=== PATIENT | female | born 1950 | race Caucasian/White ===

== ENCOUNTER → 2016-09-08 | Outpatient (CLI) | payer BC ==
[~2016-09-08] MED LIST: ATOR10TA65 PO; FERR324T11 PO; FOLI-49 PO; GLIM4TAB PO; METF-382 PO
[2016-09-08 16:13] LABS: ADD SCAN DIFF NO
[2016-09-08 16:27] LABS: ALBUMIN 4.3 g/dl (3.3-4.9)
[2016-09-08 16:28] LABS: POTASSIUM 5.1 mmol/L (3.5-5.1)
[2016-09-08 16:29] LABS: CREATININE 0.68 mg/dl (0.44-1.00)
[2016-09-08 16:30] LABS: ALBUMIN/GLOBULIN RATIO 1.26; BILIRUBIN,INDIRECT 0.1 mg/dl (0-1.1); BILIRUBIN,TOTAL 0.1 mg/dl (0.2-1.3); TOTAL PROTEIN 7.7 g/dl (6.1-8.1)
[2016-09-08 16:31] LABS: CALCIUM 10.1 mg/dl (8.4-10.2)
[2016-09-08 17:23] LABS: BASOPHILS % 0.4 % (0.0-2.0); EOSINOPHILS # 0.1 10^3/ul (0.0-0.5); EOSINOPHILS % 0.9 % (0.0-7.0); HEMATOCRIT 33.7 % (37.0-47.0); LYMPHOCYTES # 3.8 10^3/ul (0.8-2.9); LYMPHOCYTES % 49.3 % (15.0-51.0); MEAN CORPUSCULAR HGB CONC 32.6 g/dl (32.0-37.0); MEAN PLATELET VOLUME 10.3 fl (7.4-10.4); MONOCYTE # 0.4 10^3/ul (0.3-0.9); MONOCYTES % 5.2 % (0.0-11.0); NEUTROPHIL # 3.4 10^3/ul (1.6-7.5); NEUTROPHILS % 44.1 % (39.0-77.0); PLATELET COUNT 270 10^3/UL (140-415); RED BLOOD COUNT 3.24 10^6/ul (4.20-5.40); RED CELL DISTRIBUTION WIDTH 13.2 % (11.5-14.5); WHITE BLOOD COUNT 7.7 10^3/ul (4.8-10.8)
== END | disposition home or self-care (01) ==
LOC: LAB 15:56
PROVIDERS: ATTEND Internal Medicine
DX: E11.65 Type 2 diabetes mellitus with hyperglycemia (principal); I10 Essential (primary) hypertension
CPT/HCPCS: 80053; 83036; 85025

== ENCOUNTER → 2016-11-19 | Outpatient (CLI) | payer BC ==
[~2016-11-19] MED LIST changes: -METF-382 PO; +METF500T4 PO
[2016-11-19 16:20] LABS: ADD SCAN DIFF NO
[2016-11-19 16:21] LABS: BASOPHILS % 0.4 % (0.0-2.0); EOSINOPHILS % 0.6 % (0.0-7.0); HEMATOCRIT 34.5 % (37.0-47.0); LYMPHOCYTES # 3.3 10^3/ul (0.8-2.9); LYMPHOCYTES % 45.6 % (15.0-51.0); MEAN CORPUSCULAR HEMOGLOBIN 32.7 pg (29.0-33.0); MEAN CORPUSCULAR HGB CONC 31.9 g/dl (32.0-37.0); MEAN CORPUSCULAR VOLUME 102.7 fl (82.0-101.0); MEAN PLATELET VOLUME 9.8 fl (7.4-10.4); MONOCYTE # 0.3 10^3/ul (0.3-0.9); MONOCYTES % 4.1 % (0.0-11.0); NEUTROPHIL # 3.6 10^3/ul (1.6-7.5); NEUTROPHILS % 49.2 % (39.0-77.0); PLATELET COUNT 267 10^3/UL (140-415); RED BLOOD COUNT 3.36 10^6/ul (4.20-5.40); RED CELL DISTRIBUTION WIDTH 12.8 % (11.5-14.5); WHITE BLOOD COUNT 7.2 10^3/ul (4.8-10.8)
[2016-11-19 16:35] LABS: ALBUMIN 4.3 g/dl (3.3-4.9)
[2016-11-19 16:36] LABS: POTASSIUM 4.6 mmol/L (3.5-5.1)
[2016-11-19 16:38] LABS: ALBUMIN/GLOBULIN RATIO 1.13; CREATININE 1.23 mg/dl (0.44-1.00); TOTAL PROTEIN 8.1 g/dl (6.1-8.1)
[2016-11-19 16:39] LABS: CALCIUM 9.3 mg/dl (8.4-10.2)
[2016-11-19 16:41] LABS: C-REACTIVE PROTEIN 0.8 mg/dl (0.0-0.9)
== END | disposition home or self-care (01) ==
LOC: LAB 15:43
PROVIDERS: ATTEND Nurse Practitioner Family
DX: M06.9 Rheumatoid arthritis, unspecified (principal)
CPT/HCPCS: 80053; 85025; 85651; 86140

== ENCOUNTER → 2017-03-06 | Outpatient (CLI) | payer BC ==
[2017-03-06 16:12] LABS: BASOPHILS % 0.6 % (0.0-2.0); EOSINOPHILS # 0.1 10^3/ul (0.0-0.5); EOSINOPHILS % 0.9 % (0.0-7.0); HEMATOCRIT 35.3 % (37.0-47.0); HEMOGLOBIN 11.3 g/dl (12.0-16.0); LYMPHOCYTES % 43.7 % (15.0-51.0); MEAN CORPUSCULAR HEMOGLOBIN 33.1 pg (29.0-33.0); MEAN CORPUSCULAR VOLUME 103.5 fl (82.0-101.0); MONOCYTE # 0.7 10^3/ul (0.3-0.9); MONOCYTES % 10.6 % (0.0-11.0); NEUTROPHILS % 43.9 % (39.0-77.0); PLATELET COUNT 206 10^3/UL (140-415); RED BLOOD COUNT 3.41 10^6/ul (4.20-5.40); RED CELL DISTRIBUTION WIDTH 14.1 % (11.5-14.5); WHITE BLOOD COUNT 6.8 10^3/ul (4.8-10.8)
[2017-03-06 16:33] LABS: ALBUMIN 4.8 g/dl (3.3-4.9); ALBUMIN/GLOBULIN RATIO 1.17; BILIRUBIN,INDIRECT 0.1 mg/dl (0-1.1); BILIRUBIN,TOTAL 0.1 mg/dl (0.2-1.3); C-REACTIVE PROTEIN 0.6 mg/dl (0.0-0.9); CALCIUM 9.8 mg/dl (8.4-10.2); CREATININE 0.86 mg/dl (0.44-1.00); POTASSIUM 4.6 mmol/L (3.5-5.1); TOTAL PROTEIN 8.9 g/dl (6.1-8.1)
== END | disposition home or self-care (01) ==
LOC: LAB 15:37
PROVIDERS: ATTEND Specialist
DX: N18.6 End stage renal disease (principal)
CPT/HCPCS: 80053; 85025; 85651; 86140; 86480

== ENCOUNTER → 2017-10-21 | Outpatient (CLI) | END | disposition home or self-care (01) ==

== ENCOUNTER → 2018-04-15 | Outpatient (CLI) | END | disposition home or self-care (01) ==

== ENCOUNTER → 2018-07-16 | Outpatient (CLI) | payer BC ==
[~2018-07-16] MED LIST changes: +AMLO5TAB4 PO; +CYAN100T PO; +DULA0.75 SQ; +INSU200I4 SQ; +METF500T24 PO; -METF500T4 PO
== END | disposition home or self-care (01) ==
LOC: LAB 11:47
PROVIDERS: ATTEND Internal Medicine
DX: E11.9 Type 2 diabetes mellitus without complications (principal); I10 Essential (primary) hypertension; E78.5 Hyperlipidemia, unspecified
CPT/HCPCS: 80053; 80061; 83036; 84443; 85025

== ENCOUNTER 2018-08-19 07:35 | Inpatient (IN) | payer BC ==
[2018-08-13 18:16] VITALS: Ht 154.9 cm; Wt 52.7 kg
--- NOTE | 2018-08-18 12:04 | PREOPHP ---
DATE OF ADMISSION: 07/30/2018 CHIEF COMPLAINT: Patient in for preop right shoulder replacement. HISTORY OF PRESENT ILLNESS: The patient is a 68-year-old female with a history of arthritis and bila teral shoulder pain for years, had left shoulder replacement approximately 2 years ago with good resu lts. She has had increasing pain in the right shoulder over the last year. The pain is worse with a ctivities, with diminished range of motion. Strength has been okay, the patient has seen Dr. Dahl , who scheduled her for right shoulder replacement on 08/19/2018. The patient denies any recent illn esses. No chest pain, shortness of breath, cough, abdominal pain, urinary symptoms, fever, chills, o r night sweats. Diabetic control is improving. She says her home sugars are in the 140s. The patie nt did recently see Dr. Huston, who felt her sensory control is improving that she would be stable f or her procedure. The patient also had cardiology clearance with Dr. Haddad. PAST MEDICAL HISTORY: Diabetes, hypertension, hyperlipidemia, arthritis surgeries, left shoulder rep lacement. OPERATIONS: Bilateral knee replacements, hysterectomy, bunionectomy. MEDICATIONS: 1. Tresiba 14 units subq daily. 2. Trulicity weekly. 3. Atorvastatin 20 mg daily. 4. Methotrexate weekly. 5. Folic acid 1 mg daily. 6. Amlodipine 5 mg daily. 7. Metformin 500 mg b.i.d. ALLERGIES: 1. INTOLERANCE TO ACARBOSE. 2. INTOLERANCE TO AVANDIA. 3. INTOLERANCE TO FARXIGA. 4. INTOLERANCE TO JANUVIA. 5. INTOLERANCE TO TRADJENTA. SOCIAL HISTORY: Patient denies any tobacco or alcohol use. She is , works at [employer] in housekeeping. FAMILY HISTORY: The patient's father at 89. Mother with history of arthritis. She had 7 b rothers, 4 are , 4 sisters who are alive, son and daughter who are alive and well. REVIEW OF SYSTEMS: GENERAL: The patient denies any fever, chills, night sweats, other general complaints. HEENT: Patient denies any headaches, dizziness, any vision change, congestion, rhinorrhea, sore thro at, or other HEENT complaints. RESPIRATORY: The patient denies any cough, wheeze, shortness of breath, or other respiratory complai nts. CARDIOVASCULAR: The patient denies any chest pains, palpitations, dizziness, or other cardiovascular complaints. GASTROINTESTINAL: The patient denies abdominal pain, nausea, vomiting, bright red blood per rectum, melena, or other GI complaints. GENITOURINARY: The patient denies any dysuria, frequency, or other urinary symptoms. NEUROLOGIC: The patient denies any numbness, tingling, weakness, or other focal neurologic symptoms. PHYSICAL EXAMINATION: VITAL SIGNS: Pulse 84, blood pressure 140/80. GENERAL APPEARANCE: The patient is well-developed, well-nourished female in no acute distress. She appears nontoxic. HEENT: Normocephalic, atraumatic. Sclerae anicteric. TMs are clear. Oropharynx is clear. NECK: Supple, no adenopathy, no bruits. LUNGS: Clear to auscultation. CARDIAC: Regular rate and rhythm. ABDOMEN: Bowel sounds are present. Abdomen is soft, nontender, nondistended. EXTREMITIES: Without cyanosis, clubbing, or edema. There is pain to palpation in the right shoulder with decreased range of motion. Distal neurovascular intact. NEUROLOGIC: The patient is alert and oriented x3 with no focal neurologic findings. IMPRESSION: 1. Severe arthritis, right shoulder. 2. Diabetes with hyperglycemia. 3. Hypertension. 4. Hyperlipidemia. PLAN: Preop labs, CBC, CMP, PT, PTT, UA culture if indicated. Chest x-ray, if above okay, okay for surgery. The patient had recent EKG in cardiology clearance with Dr. Haddad, increase Lipitor 20 mg daily. Continue other treatments, avoid aspirin, nonsteroidals and blood thinners prior to surgery. Followup to be arranged. ADDENDUM: Data reviewed. Labs notable for hemoglobin of 11.7, glucose of 332. Discussed with Dr. Raquel carney insulin operatively as needed to control blood sugars. Otherwise, patient is medically stable to proceed with proposed procedure. Dictated By: SHILO FELDER/TUAN Conf#: [id number] DID#: [id number]
[2018-08-19] VITALS (29 sets, daily range): BP systolic 128–145; BP diastolic 56–72; PULSE 66–76; RESP 11–20
[~2018-08-19] VITALS: Ht 154.9 cm; Wt 52.7 kg
--- NOTE | 2018-08-19 05:51 | HPN ---
Date/Time of Note Date/Time of Note DATE: 08/19/18 TIME: 05:51 Interval H&P Admission Note Pt. seen H&P reviewed: No system changes TOO SOTELO MD Aug 19, 2018 05:51
--- NOTE | 2018-08-19 05:54 | OPR ---
Date/Time of Note Date/Time of Note DATE: 08/19/18 TIME: 05:51 Operative Report Procedure Date: Aug 19, 2018 Preoperative Diagnosis Right shoulder rotator cuff tear arthropathy Postoperative Diagnosis 1. Right shoulder arthritis, secondary 2. Massive, unrepairable rotator cuff tear Operation/Procedure Performed 1. Right reverse total shoulder replacement 2. Right shoulder injection of PRP Surgeon see signature line Crown Ironer Operator Noe Rosas PA-C Second Crown Ironer Operator: NILESH JIMENEZ Anesthesia Type: general Estimated Blood Loss: 100 - 150 ml's Transfusion none Specimen See op note Grafts/Implants See op note Complications none Pt Condition Post Procedure: stable Disposition: PACU Procedure Description KITCHEN CHEF SURGEON: Noe Rosas PA-C was asked to be present for this case at my request. Assistance was necessary as a result of the highly technical nature of this operation. When performing an open total shoulder replacement, it is critical to have a trained refinery operator assistant who is an expert in handling the extremity and assisting the surgeon in tasks such as manipulation of the arm, protection of the neurovascular structures and positioning the implants. This assistance cannot be performed by a semiconductor lab technician, as it is considered an integral part of the procedure and the refinery operator assistant should be compensated for their time. PROCEDURE IN DETAIL: Following the administration of general anesthesia supplemented with a peripheral nerve block for postoperative pain control, the patient was examined under anesthesia. Examination of the right shoulder revealed very significant stiffness including a forward flexion of about 80 degrees and abduction of 35 degrees maximal external rotation of 30 degrees with severe crepitus. There was anteroposterior escape of the humeral head, also. The right forearm was then prepped and 60 cc of blood were aspirated from the forearm. The blood was then passed to the solar sales representative from the company who prepared the PRP solution. The patient was then placed in the beach chair position. Sterile prep and drape was then undertaken. An extended deltopectoral incision was then carried through the interval exposing the conjoined tendon and retracting it medially. The subscapularis was noted to be partially disrupted superiorly. Severe arthritic changes were noted with very large peripheral osteophytes. The superior rotator cuff was torn and retracted. The biceps tendon was also chronically torn and retracted. The intra-articular portion was resected. A humeral head osteotomy was then created in the appropriate degree of version and inclination. The humerus was retracted and the glenoid was exposed. Peripheral osteophytes were removed and a complete capsulectomy performed. The central canal of the glenoid was then entered and prepared for a standard Depuy baseplate. The glenoid canal was irrigated and 2 cc of PRP solution were i nstilled into the previously prepared site. A standard Depuy baseplate was then applied with four peripheral screws and solid fixation. A 38 mm glenosphere was then applied, with solid fixation. The humerus was then reamed and prepared for a 10 mm humeral component with a standard metaphyseal component and 3 mm liner. The humeral canal was then irrigated and the remaining PRP solution instilled into the humeral canal. The actual components were implanted with solid fixation. The arm was taken through full range of motion with no evident instability. The joint was then thoroughly irrigated, the deep tissues were approximated using #1 suture followed by closure of the deep layer using 2-0 Monocryl. The skin was closed using 4-0 Monocryl suture, and a Prenio dressing. An Ultrasling was then applied. The patient was awakened and transported to the recovery room in stable [facility]. Estimated blood loss for this procedure was 150 cc. Radiographs will be obtained in the recovery room. TOO SOTELO MD Aug 19, 2018 05:54
[~2018-08-19 07:35] MED LIST changes: -AMLO5TAB4 PO; -CYAN100T PO; -DULA0.75 SQ; -INSU200I4 SQ; +LACTATED RINGER'S 1,000 ML IV* SCH; +SEVOFLURANE 15 MIN ONE
[2018-08-19] MEDS ORDERED: GABAPENTIN 300 MG CAP PO ONE (08:30)
[2018-08-19] MEDS ORDERED: CEFAZOLIN 2 GM/50 ML (PMX) 50 ML IVPB ONE (08:30)
[2018-08-19] MEDS ORDERED: TRANEXAMIC ACID 1,000 MG in DEXTROSE 5% 100 ML IVPB ONE (08:30)
[2018-08-19] MEDS ORDERED: DEXAMETHASONE 1 MG TAB PO ONE (08:30)
[2018-08-19] MEDS ORDERED: AMLO5TAB4 PO (09:05)
[2018-08-19] MEDS ORDERED: METF500T24 PO (09:05)
[2018-08-19] MEDS ORDERED: FOLI-49 PO (09:06)
[2018-08-19] MEDS ORDERED: CYAN100T PO (09:06)
[2018-08-19] MEDS ORDERED: DULA0.75 SQ (09:07)
[2018-08-19] MEDS ORDERED: INSU200I4 SQ (09:08)
[2018-08-19] MEDS ORDERED: BUPIVACAINE 0.5% (SDV) 30 ML, morphine SULFATE (PF) 8 MG, EPINEPHrine 0.3 MG, KETOROLAC... IRR SCH ×7 (10:00)
[2018-08-19] MEDS ORDERED: MIDAZOLAM 1 MG/ML 2 ML INJ ONE (10:40)
[2018-08-19] MEDS ORDERED: FENTAnyl 50 MCG/ML VIAL ONE (10:41)
[2018-08-19] MEDS ORDERED: ROPIVACAINE 0.5 % 30 ML VIAL ONE (10:48)
[2018-08-19] MEDS ORDERED: hydrALAzine 20 MG INJ ONE (10:51)
--- NOTE | 2018-08-19 11:57 | PREAC ---
Date/Time of Note Date/Time of Note DATE: 08/19/18 TIME: 11:55 Anesthesia Eval and Record Evaluation Time Pre-Procedure Interview DATE: 08/19/18 TIME: 11:55 Age 68 Sex female NPO: 8 hrs Preoperative diagnosis Rt shoulder arthritis Planned procedure Rt shoulder replacement Past Medical History Past Medical History: Includes Cardio: HTN, Dyslipidemia Endo: Diabetes Surgery & Anesthesia Issues Hx of PONV, No known issue Meds Anticoagulation: No Beta Collette within 24 hr: No Reason Beta Collette not given: Pt. not on B-Collette Reported Medications Insulin Degludec (Tresiba Flextouch U-200) 200 Unit/1 Ml Insuln.pen, 14 UNIT SQ QAM 08/19/18 Dulaglutide (Trulicity) 0.75 Mg/0.5 Ml Pen.injctr, 0.75 MG SQ EVERY Thursday08/19/18 Cyanocobalamin* (Vitamin B12*) 100 Mcg Tab, 100 MCG PO DAILY, TAB 08/19/18 Folic Acid* (Folic Acid*) 1 Mg Tablet, 1 MG PO DAILY, TAB 08/19/18 Amlodipine Besylate* (Norvasc*) 5 Mg Tablet, 5 MG PO DAILY, TAB 08/19/18 Metformin Hcl* (Metformin Hcl*) 500 Mg Tablet, 500 MG PO WITH BREAKFAST DINNE, #60 TAB 08/19/18 Discontinued Reported Medications Metformin Hcl* (Metformin Hcl*) 500 Mg Tablet, 500 MG PO WITH BREAKFAST DINNE, # 30 TAB 07/03/16 Folic Acid* (Folic Acid*) 1 Mg Tablet, 1 MG PO DAILY, TAB 07/03/16 Glimepiride* (Glimepiride*) 4 Mg Tablet, 4 MG PO DAILY, TAB 01/13/14 Atorvastatin Calcium (Atorvastatin Calcium) 10 Mg Tab, 10 MG PO DAILY, TAB 01/13/14 Ferrous Fumarate (Ferrous Fumarate) 324 Mg Tablet, 324 MG PO DAILY 10/29/12 Current Medications Bupivacaine HCl/ Morphine Sulfate/ Epinephrine/ Ketorolac Tromethamine/ Clonidine/Sodium Chloride/ Vancomycin HCl INTRA-OP IRR ; Start 08/19/18 at 10:00; Stop 08/19/18 at 12:30 Lactated Ringer's 1,000 ml @ 0 mls/hr Q0M IV* Last administered on 08/19/18at 09:20; Admin Dose 30 MLS/HR; Start 08/19/18 at 06:30; Stop 08/19/18 at 20:00 Meds reviewed: Yes Allergies Coded Allergies: No Known Drug Allergy (Verified Allergy, Unknown, 08/19/18) Allergies Reviewed: Yes Labs/Studies Labs Reviewed: Reviewed by anesthesiologist test: N/A Studies: ECG Pre-procedure Exam Last vitals Vital Signs Date Temp Pulse Resp B/P (MAP) Pulse Ox O2 O2 Flow FiO2 Time Delivery Rate 08/19/18 97.4 66 16 138/66 100 Room Air 09:29 (90) Airway: Adequate mouth opening, Adequate thyromental dist Mallampati: Mallampati II Teeth: Normal Lung: Normal Heart: Normal ASA Physical Status ASA physical status: 3 Emergency: None Planned Anesthetic General/MAC: LMA Planned Pain Management Single shot nerve block, Parenteral pain med Pre-operative Attestations Prior to commencing anesthesia and surgery, the patient was re-evaluated, there was verification of: *The patient's identity *The results of appropriate recent lab work and preoperative vital signs *The above evaluation not changing prior to induction *Anesthetic plan, risk benefits, alternative and complications discussed with patient/family; questions answered; patient/family understands, accepts and wishes to proceed. REDD STAUFFER MD Aug 19, 2018 11:57
[2018-08-19] MEDS ORDERED: CA CHLORIDE (GM) 10% 10 ML INJ ONE (12:22)
[2018-08-19] MEDS ORDERED: POLYMYXIN/BACITRACIN 1L IRRIG ONE (12:22)
[2018-08-19] MEDS ORDERED: THROMBIN (BOVINE) 5,000 UNIT VIAL TP ONE (12:22)
[2018-08-19] MEDS ORDERED: CEFAZOLIN 1 GM INJ ONE (12:54)
[2018-08-19] MEDS ORDERED: LIDOCAINE 2% (SDV) 5 ML INJ ONE (12:55)
[2018-08-19] MEDS ORDERED: METOCLOPRAMIDE 10 MG INJ ONE (12:55)
[2018-08-19] MEDS ORDERED: ETOMIDATE 20 MG INJ ONE (12:55)
[2018-08-19] MEDS ORDERED: ONDANSETRON 4 MG INJ ONE (12:55)
--- NOTE | 2018-08-19 13:08 | PDOCDIS ---
Discharge Instructions DIAGNOSIS Discharge Diagnosis shoulder arthritis CONDITION [id number] Patient Condition: [id number] Good HOME CARE INSTRUCTIONS: [id number] Diet Instructions: [id number] Regular ACTIVITY: [id number] Activity Restrictions: [id number] Rest between Activity Avoid heavy lifting Keep Limb Elevated Focia7Ch Bathing Restrictions: [id number] Shower FOLLOW UP/APPOINTMENTS Follow-up Plan 2 wseks SCHOOL/WORK RELEASE May return to School/Work with: With Restrictions School/Work Release Comment: 5 pound tabletop usage for 6 weeks TOO SOTELO MD Aug 19, 2018 13:08
--- NOTE | 2018-08-19 13:26 | PAC ---
Date/Time of Note Date/Time of Note DATE: 08/19/18 TIME: 13:26 Post-Anesthesia Notes Post-Anesthesia Note Last documented vital signs Vital Signs Date Temp Pulse Resp B/P (MAP) Pulse Ox O2 O2 Flow FiO2 Time Delivery Rate 08/19/18 98.8 13:23 08/19/18 66 16 138/66 100 Room Air 09:29 (90) Activity: WNL Respiratory function: WNL Cardiovascular function: WNL Mental status: Baseline Pain reasonably controlled: Yes Hydration appropriate: Yes Nausea/Vomiting absent: Yes Comments 120/56, P:65, Spo2:100%, T:98,7 REDD STAUFFER MD Aug 19, 2018 13:26
[2018-08-19] MEDS ORDERED: LOPERAMIDE 2 MG CAP PO PRN (13:30)
[2018-08-19] MEDS ORDERED: LABETALOL HCL 20MG INJ IV PRN (13:30)
[2018-08-19] MEDS ORDERED: METOCLOPRAMIDE 10 MG INJ IV PRN (13:30)
[2018-08-19] MEDS ORDERED: HYDROmorphONE 1 MG/5 ML IV SYRINGE IV PRN (13:30)
[2018-08-19] MEDS ORDERED: hydrALAzine 20 MG INJ IV PRN (13:30)
[2018-08-19] MEDS ORDERED: MEPERIDINE 25 MG INJ IV PRN (13:30)
[2018-08-19] MEDS ORDERED: TRANEXAMIC ACID 1,000 MG in SOD CHLORIDE 0.9% 100 ML IVPB SCH (13:30)
[2018-08-19] MEDS ORDERED: ONDANSETRON 4 MG INJ IV PRN ×2 (13:30)
[2018-08-19] MEDS ORDERED: NACL 0.9% 3 ML SYG IV SCH (13:30)
[2018-08-19] MEDS ORDERED: NALOXONE (0.4 MG/ML) INJ IV PRN (13:30)
[2018-08-19] MEDS ORDERED: ZOLPIDEM 5 MG TAB PO PRN (13:30)
[2018-08-19] MEDS ORDERED: HYDROmorphONE 1 MG/ML SYG IV PRN (13:30)
[2018-08-19] MEDS ORDERED: DULAGLUTIDE 0.75 MG SQ SCH (13:30)
[2018-08-19] MEDS ORDERED: DIPHENHYDRAMINE 50 MG INJ IV PRN ×2 (13:30)
[2018-08-19] MEDS ORDERED: oxyCODONE 5 MG TAB PO PRN ×3 (13:30)
[2018-08-19] MEDS ORDERED: MAGNESIUM HYDROXIDE 30ML CUP PO PRN (13:30)
[2018-08-19] MEDS ORDERED: FENTAnyl 50 MCG/ML VIAL IV PRN (13:30)
[2018-08-19] MEDS ORDERED: HYDROmorphONE 1 MG/5 ML IV SYRINGE IV ONE (13:51)
[2018-08-19] MEDS: HYDROmorphONE 1 MG/5 ML IV SYRINGE IV PRN ×2 (14:08→14:15)
[2018-08-19] MEDS: KETOROLAC 15 MG INJ IV PRN (14:42)
[2018-08-19] MEDS: CEFAZOLIN 1 GM/50 ML (PMX) 50 ML IVPB SCH ×2 (16:04→22:05)
[2018-08-19] MEDS: ONDANSETRON 4 MG INJ IV PRN ×2 (16:04→23:53)
--- NOTE | 2018-08-19 17:30 | PN ---
Date/Time of Note Date/Time of Note DATE: 08/19/18 TIME: 17:24 Assessment/Plan VTE Prophylaxis Risk score (from Nsg)>0 risk: 2 SCD applied (from Nsg): Yes Pharmacological prophylaxis: NA/contraindicated Pharm contraindication: surgical contra Lines/Catheters IV Catheter Type (from Nrsg): Peripheral IV Urinary Cath still in place: No Assessment/Plan Assessment/Plan A: OA rt shoulder - s/p replacement DM HTN P: pain control mild ss insulin until taking increased po monitor labs Results 24hrs Laboratory Tests Test 08/19/18 09:02 Bedside Glucose 191 Subjective 24 Hr Interval Summary Free Text/Dictation See H&P for full details. Pt with OA rt shoulder s/p replacement this am. Feel ing pretty well. Pain controlled. Tolerating jello. No cp, sob. Exam/Review of Systems Exam Vitals Vital Signs Date Temp Pulse Resp B/P (MAP) Pulse Ox O2 O2 Flow FiO2 Time Delivery Rate 08/19/18 Nasal 2.0 15:45 Cannula 08/19/18 74 13 145/66 96 14:51 (92) 08/19/18 98.8 13:23 Exam gen- nad, nontoxic lungs- CTA heart- RRR abd- +BS, soft, nontender ext- no edema, rt shoulder incision clean and dry. Distal neurovascular intact. Results Results 24hrs Laboratory Tests Test 08/19/18 09:02 Bedside Glucose 191 Medications Medication Current Medications Lactated Ringer's 1,000 ml @ 0 mls/hr Q0M IV* Last administered on 08/19/18at 09:20; Admin Dose 30 MLS/HR; Start 08/19/18 at 06:30; Stop 08/19/18 at 20:00 Amlodipine Besylate (Norvasc) 5 mg DAILY PO ; Start 08/20/18 at 09:00 Folic Acid (Folic Acid) 1 mg DAILY PO ; Start 08/20/18 at 09:00 Metformin HCl (Glucophage) 500 mg WITH BREAKFAST DINNE PO ; Start 08/19/18 at 17:55 Miscellaneous Information 0.75 mg EVERY THURSDAY SQ ; Start 08/19/18 at 13:30; Status UNV Miscellaneous Information 14 unit QAM SQ ; Start 08/20/18 at 09:00; Status UNV Cefazolin Sodium 50 ml @ 100 mls/hr Q8H IVPB Last administered on 08/19/18at 16:04; Admin Dose 100 MLS/HR; Start 08/19/18 at 13:30; Stop 08/20/18 at 05:59 Senna/Docusate Sodium (Senokot-S) 1 tab BID PO ; Start 08/19/18 at 21:00 Simethicone (Mylicon) 80 mg TID PRN PO .GAS; Start 08/19/18 at 13:30 Magnesium Hydroxide (Milk Of Mag) 30 ml BID PRN PO .CONSTIPATION; Start 08/19/18 at 13:30 Loperamide HCl (Imodium Cap) 2 mg Q6H PRN PO .DIARRHEA; Start 08/19/18 at 13:30 Dexamethasone (Decadron) 2 mg Q6 PO ; Start 08/19/18 at 18:00; Stop 08/20/18 at 12:01 Gabapentin (Neurontin) 300 mg HS PO ; Start 08/19/18 at 21:00 Acetaminophen (Tylenol Tab) 500 mg Q6 PO ; Start 08/19/18 at 18:00 Oxycodone HCl (Roxicodone) 15 mg Q4H PRN PO .PAIN; Start 08/19/18 at 13:30 Oxycodone HCl (Roxicodone) 10 mg Q4H PRN PO .PAIN; Start 08/19/18 at 13:30 Oxycodone HCl (Roxicodone) 5 mg Q4H PRN PO .PAIN; Start 08/19/18 at 13:30 Hydromorphone HCl (Dilaudid) 1 mg Q4H PRN IV .BREAKTHROUGH PAIN; Start 08/19/18 at 13:30 Ketorolac Tromethamine (Toradol) 15 mg Q6H PRN IV .PAIN Last administered on 08/19/18at 14:42; Admin Dose 15 MG; Start 08/19/18 at 13:30 Diphenhydramine HCl (Benadryl) 25 mg Q6H PRN IV .PRURITUS; Start 08/19/18 at 13:30 Zolpidem Tartrate (Ambien) 10 mg HS PRN PO .INSOMNIA; Start 08/19/18 at 13:30 IV Flush (NS 3 ml) 3 ml per protocol IV ; Start 08/19/18 at 13:30 Hydromorphone HCl (Dilaudid) 0.2 mg PACU PRN IV MILD PAIN 1-3 Last administered on 08/19/18at 14:21; Admin Dose 0.2 MG; Start 08/19/18 at 13:30; Stop 08/19/18 at 18:00 Hydromorphone HCl (Dilaudid) 0.4 mg PACU PRN IV MOD PAIN 4-6 Last administered on 08/19/18at 14:15; Admin Dose 0.4 MG; Start 08/19/18 at 13:30; Stop 08/19/18 at 18:00 Fentanyl (Sublimaze) 25 mcg PACU ORDER PRN IV MILD PAIN 1-3; Start 08/19/18 at 13:30; Stop 08/19/18 at 18:00 Ondansetron HCl (Zofran Inj) 4 mg PACU ORDER PRN IV NAUSEA/VOMITING; Start 08/19/18 at 13:30; Stop 08/19/18 at 18:00 Metoclopramide HCl (Reglan) 10 mg PACU ORDER PRN IV NAUSEA/VOMITING; Start 08/19/18 at 13:30; Stop 08/19/18 at 18:00 Labetalol HCl (Labetalol) 5 mg PACU ORDER PRN IV HIGH BLOOD PRESSURE; Start at 13:30; Stop 08/19/18 at 18:00 Hydralazine HCl (Apresoline) 5 mg PACU ORDER PRN IV HIGH BLOOD PRESSURE; Start 08/19/18 at 13:30; Stop 08/19/18 at 18:00 Meperidine HCl (Demerol) 25 mg PACU ORDER PRN IV .RIGORS; Start 08/19/18 at 13:30; Stop 08/19/18 at 18:00 Diphenhydramine HCl (Benadryl) 25 mg PACU ORDER PRN IV .PRURITUS; Start 08/19/18 at 13:30; Stop 08/19/18 at 18:00 Ondansetron HCl (Zofran Inj) 4 mg Q6H PRN IV .NAUSEA/VOMITING Last administered on 08/19/18at 16:04; Admin Dose 4 MG; Start 08/19/18 at 13:30 Naloxone HCl (Narcan) 0.2 mg Q2M PRN IV .RESP RATE; Start 08/19/18 at 13:30 SHILO ROMERO MD Aug 19, 2018 17:30
[2018-08-19] MEDS: ACETAMINOPHEN 500 MG TAB PO SCH ×2 (18:00→23:54)
[2018-08-19] MEDS: metFORMIN 500 MG TAB PO SCH (18:09)
[2018-08-19] MEDS: DEXAMETHASONE 2 MG TAB PO SCH ×2 (18:09→23:54)
[2018-08-19] MEDS ORDERED: DEXTROSE 50% 50 ML SYRINGE IV PRN ×2 (19:00)
[2018-08-19] MEDS ORDERED: GLUCAGON 1 MG INJ IM PRN (19:00)
[2018-08-19] MEDS ORDERED: GLUCOSE GEL 15 GRAM TUBE BUCCAL PRN (19:00)
[2018-08-19] MEDS ORDERED: GLUCOSE GEL 15 GRAM TUBE PO PRN ×2 (19:00)
[2018-08-19] MEDS: SENNA/DOCUSATE NA (8.6MG/50MG) TAB PO SCH (20:33)
[2018-08-19] MEDS ORDERED: GABAPENTIN 300 MG CAP PO SCH (21:00)
[2018-08-19] MEDS: INSULIN ASPART [NOVOLOG] 3 ML PEN SC SCH (21:34)
[2018-08-20] MEDS ORDERED: ACCU-CHEK XX SCH (02:00)
[2018-08-20] MEDS: KETOROLAC 15 MG INJ IV PRN (03:40)
[2018-08-20] MEDS: CEFAZOLIN 1 GM/50 ML (PMX) 50 ML IVPB SCH (05:28)
[2018-08-20] MEDS: ACETAMINOPHEN 500 MG TAB PO SCH (05:28)
[2018-08-20] MEDS: DEXAMETHASONE 2 MG TAB PO SCH (05:28)
--- NOTE | 2018-08-20 06:11 | PN ---
Date/Time of Note Date/Time of Note DATE: 08/20/18 TIME: 06:10 Subjective Awake and alert this morning. Minimal complaints. Objective Vitals Vital Signs Date Temp Pulse Resp B/P (MAP) Pulse Ox O2 O2 Flow FiO2 Time Delivery Rate 08/19/18 98.6 67 18 128/61 100 20:37 (83) 08/19/18 Nasal 2.0 20:10 Cannula Intake and Output 08/19/18 08/19/18 08/20/18 1515:00 23:00 07:00 IntakeIntake Total 1000 ml 270 ml 200 ml OutputOutput Total 50 ml BalanceBalance 950 ml 270 ml 200 ml Her wound is clean and dry. She is neurologically intact. There are no signs of DVT. Results Result Diagram: 08/20/18 0449 Medications Medications Current Medications Amlodipine Besylate (Norvasc) 5 mg DAILY PO ; Start 08/20/18 at 09:00 Folic Acid (Folic Acid) 1 mg DAILY PO ; Start 08/20/18 at 09:00 Metformin HCl (Glucophage) 500 mg WITH BREAKFAST DINNE PO Last administered on 08/19/18at 18:09; Admin Dose 500 MG; Start 08/19/18 at 17:55 Miscellaneous Information 0.75 mg EVERY THURSDAY SQ ; Start 08/19/18 at 13:30; Status UNV Miscellaneous Information 14 unit QAM SQ ; Start 08/20/18 at 09:00; Status UNV Senna/Docusate Sodium (Senokot-S) 1 tab BID PO Last administered on 08/19/18at 20:33; Admin Dose 1 TAB; Start 08/19/18 at 21:00 Simethicone (Mylicon) 80 mg TID PRN PO .GAS; Start 08/19/18 at 13:30 Magnesium Hydroxide (Milk Of Mag) 30 ml BID PRN PO .CONSTIPATION; Start 08/19/18 at 13:30 Loperamide HCl (Imodium Cap) 2 mg Q6H PRN PO .DIARRHEA; Start 08/19/18 at 13:30 Dexamethasone (Decadron) 2 mg Q6 PO Last administered on 08/20/18at 05:28; Admin Dose 2 MG; Start 08/19/18 at 18:00; Stop 08/20/18 at 12:01 Gabapentin (Neurontin) 300 mg HS PO Last administered on 08/19/18 20:33; Admin Dose 300 MG; Start 08/19/18 at 21:00 Acetaminophen (Tylenol Tab) 500 mg Q6 PO Last administered on 08/20/18 05:28; Admin Dose 500 MG; Start 08/19/18 at 18:00 Oxycodone HCl (Roxicodone) 15 mg Q4H PRN PO .PAIN Last administered on 08/19/18 21:38; Admin Dose 15 MG; Start 08/19/18 at 13:30 Oxycodone HCl (Roxicodone) 10 mg Q4H PRN PO .PAIN; Start 08/19/18 at 13:30 Oxycodone HCl (Roxicodone) 5 mg Q4H PRN PO .PAIN; Start 08/19/18 at 13:30 Hydromorphone HCl (Dilaudid) 1 mg Q4H PRN IV .BREAKTHROUGH PAIN; Start 08/19/18 at 13:30 Ketorolac Tromethamine (Toradol) 15 mg Q6H PRN IV .PAIN Last administered on 08/20/18at 03:40; Admin Dose 15 MG; Start 08/19/18 at 13:30 Diphenhydramine HCl (Benadryl) 25 mg Q6H PRN IV .PRURITUS; Start 08/19/18 at 13:30 Zolpidem Tartrate (Ambien) 10 mg HS PRN PO .INSOMNIA; Start 08/19/18 at 13:30 IV Flush (NS 3 ml) 3 ml per protocol IV ; Start 08/19/18 at 13:30 Ondansetron HCl (Zofran Inj) 4 mg Q6H PRN IV .NAUSEA/VOMITING Last administered on 08/19/18 23:53; Admin Dose 4 MG; Start 08/19/18 at 13:30 Naloxone HCl (Narcan) 0.2 mg Q2M PRN IV .RESP RATE; Start 08/19/18 at 13:30 Diagnostic Test (Pha) (Accu-Chek) 1 ea 02 XX ; Start 08/20/18 at 02:00 Insulin Aspart (Novolog Insulin Pen) NOVOLOG *MILD* ALGORITHM WITH MEALS BE DTIME SC Last administered on 08/19/18 21:34; Admin Dose 3 UNIT; Start 08/19/18 at 21:00 Miscellaneous Information 1 ea NOTE XX ; Start 08/19/18 at 19:00 Glucose (Glutose) 15 gm Q15M PRN PO DECREASED GLUCOSE; Start 08/19/18 at 19:00 Glucose (Glutose) 22.5 gm Q15M PRN PO DECREASED GLUCOSE; Start 08/19/18 at 19:00 Dextrose (D50w Syringe) 25 ml Q15M PRN IV DECREASED GLUCOSE; Start 08/19/18 at 19:00 Dextrose (D50w Syringe) 50 ml Q15M PRN IV DECREASED GLUCOSE; Start 08/19/18 at 19:00 Glucagon (Glucagen) 1 mg Q15M PRN IM DECREASED GLUCOSE; Start 08/19/18 at 19:00 Glucose (Glutose) 15 gm Q15M PRN BUCCAL DECREASED GLUCOSE; Start 08/19/18 at 19:00 VTE Prophylaxis Risk score (from Ns)>0 risk: 2 SCD applied (from Ns): Yes Lines/Catheters IV Catheter Type: Saline Lock Gunn in Place: No Assessment/Plan Assessment/Plan Assessment: Status post total shoulder Plan: PT this morning then discharge home TOO SOTELO MD Aug 20, 2018 06:11
--- NOTE | 2018-08-20 06:11 | DS ---
Date/Time of Note Date/Time of Note DATE: 08/20/18 TIME: 06:11 Discharge Summary Admission/Discharge Info Admit Date/Time Aug 19, 2018 at 07:36 Discharge Date/Time 08/20/2018 Discharge Diagnosis shoulder arthritis Patient Condition: Good Hospital Course Admitted and underwent uncomplicated procedure. Postop day 1 cleared from therapy to be discharged and followed up in 2 weeks Home Meds Reported Medications Insulin Degludec (Tresiba Flextouch U-200) 200 Unit/1 Ml Insuln.pen, 14 UNIT SQ QAM 08/19/18 Dulaglutide (Trulicity) 0.75 Mg/0.5 Ml Pen.injctr, 0.75 MG SQ EVERY Thursday08/19/18 Cyanocobalamin* (Vitamin B12*) 100 Mcg Tab, 100 MCG PO DAILY, TAB 08/19/18 Folic Acid* (Folic Acid*) 1 Mg Tablet, 1 MG PO DAILY, TAB 08/19/18 Amlodipine Besylate* (Norvasc*) 5 Mg Tablet, 5 MG PO DAILY, TAB 08/19/18 Metformin Hcl* (Metformin Hcl*) 500 Mg Tablet, 500 MG PO WITH BREAKFAST DINNE, #60 TAB 08/19/18 Discontinued Reported Medications Metformin Hcl* (Metformin Hcl*) 500 Mg Tablet, 500 MG PO WITH BREAKFAST DINNE, #30 TAB 07/03/16 Folic Acid* (Folic Acid*) 1 Mg Tablet, 1 MG PO DAILY, TAB 07/03/16 Glimepiride* (Glimepiride*) 4 Mg Tablet, 4 MG PO DAILY, TAB 01/13/14 Atorvastatin Calcium (Atorvastatin Calcium) 10 Mg Tab, 10 MG PO DAILY, TAB 01/13/14 Ferrous Fumarate (Ferrous Fumarate) 324 Mg Tablet, 324 MG PO DAILY 10/29/12 Follow-up Plan 2 wseks Primary Care Provider Sameer Arias MD Pending Labs Laboratory Tests Test 08/19/18 09:02 08/19/18 18:07 08/19/18 21:31 08/20/18 01:56 Bedside 191 282 284 196 Glucose mg/dL (70-220) mg/dL (70-220) mg/dL (70-220) mg/dL (70-220) Test 08/20/18 04:49 White Blood Pending Count Red Blood Count Pending Hemoglobin Pending Hematocrit Pending Mean Pending Corpuscular Volume Mean Pending Corpuscular Hemoglobin Mean Pending Corpuscular Hemoglobin Conc ent Red Cell Pending Distribution Width Platelet Count Pending Mean Platelet Pending Volume Sodium Level 137 mmol/L (135-144 ) Potassium 5.1 Level mmol/L (3.5-5.1 ) Chloride Level 102 mmol/L (97-110) Carbon Dioxide 27 Level mmol/L (21-31) Anion Gap 8 (5-13) Blood Urea 13 mg/dl (7-20) Nitrogen Creatinine 0.51 mg/dl (0.44-1.0 0) Est Glomerular > 60 Filtrat mL/min (>60) Rate mL/min Glucose Level 205 mg/dl (70-220) Calcium Level 9.1 mg/dl (8.4-10.2 ) Total 0.1 Bilirubin mg/dl (0.2-1.3) Direct 0.00 Bilirubin mg/dl (0.00-0.2 0) Indirect 0.1 Bilirubin mg/dl (0-1.1) Aspartate Amino 34 IU/L (15-46) Transf (AST/SGO T) Alanine 26 IU/L (13-69) Aminotransferas e (ALT/SGPT) Alkaline 86 Phosphatase IU/L (42-121) Total Protein 6.0 g/dl (6.1-8.1) Albumin 3.3 g/dl (3.3-4.9) Globulin 2.70 g/dl (1.3-3.2) Albumin/Globuli 1.22 n Ratio TOO SOTELO MD Aug 20, 2018 06:11
[2018-08-20 07:53] VITALS: BP 146/62; PULSE 60; RESP 18
--- NOTE | 2018-08-20 08:34 | PN ---
Date/Time of Note Date/Time of Note DATE: 08/20/18 TIME: 08:30 Assessment/Plan VTE Prophylaxis Risk score (from Nsg)>0 risk: 2 SCD applied (from Nsg): Yes Pharmacological prophylaxis: other Lines/Catheters IV Catheter Type (from Nrsg): Saline Lock Urinary Cath still in place: No Assessment/Plan Assessment/Plan A: s/p rt shoulder replacement DM HTN P: d/c home as per ortho resume home meds f/u with ortho as directed f/u with me in 2 weeks Result Diagram: 08/20/18 0449 08/20/18 0449 Results 24hrs Laboratory Tests Test 08/19/18 09:02 08/19/18 18:07 08/19/18 20:24 08/19/18 21:31 Bedside Glucose 191 282 H 272 H 284 H Test 08/20/18 01:56 08/20/18 04:49 Bedside Glucose 196 White Blood Count 11.4 #H Red Blood Count 3.03 L Hemoglobin 10.0 L Hematocrit 31.4 L Mean Corpuscular 103.6 H Volume Mean Corpuscular 33.0 Hemoglobin Mean Corpuscular 31.8 L Hemoglobin Concent Red Cell 14.1 Distribution Width Platelet Count 194 Mean Platelet Volume 10.3 Immature 0.400 Granulocytes % Neutrophils % 82.4 H Lymphocytes % 11.3 L Monocytes % 5.7 Eosinophils % 0.0 Basophils % 0.2 Nucleated Red Blood 0.0 Cells % Immature 0.050 H Granulocytes # Neutrophils # 9.4 H Lymphocytes # 1.3 Monocytes # 0.7 Eosinophils # 0.0 Basophils # 0.0 Nucleated Red Blood 0.0 Cells # Sodium Level 137 Potassium Level 5.1 Chloride Level 102 Carbon Dioxide Level 27 Anion Gap 8 Blood Urea Nitrogen 13 Creatinine 0.51 Est Glomerular > 60 Filtrat Rate mL/min Glucose Level 205 Calcium Level 9.1 Total Bilirubin 0.1 L Direct Bilirubin 0.00 Indirect Bilirubin 0.1 Aspartate Amino 34 Transf (AST/SGOT) Alanine 26 Aminotransferase (AL T/SGPT) Alkaline Phosphatase 86 Total Protein 6.0 L Albumin 3.3 Globulin 2.70 Albumin/Globulin 1.22 Ratio Subjective 24 Hr Interval Summary Free Text/Dictation Pt feeling pretty well. Mild pain at incision, no cp, sob, abd pain. Had bm. Set to go home today. Exam/Review of Systems Exam Vitals Vital Signs Date Temp Pulse Resp B/P (MAP) Pulse Ox O2 O2 Flow FiO2 Time Delivery Rate 08/20/18 98.0 60 18 146/62 97 Room Air 07:53 (90) 08/19/18 2.0 20:10 Intake and Output 08/19/18 08/19/18 08/20/18 1515:00 23:00 07:00 IntakeIntake Total 1000 ml 270 ml 400 ml OutputOutput Total 50 ml BalanceBalance 950 ml 270 ml 400 ml Exam gen- nad, nontoxic lungs- CTA heart- RRR abd- +BS, soft, nontender ext- no edema. Rt shoulder incision clean and dry. Distal neurovascular intact. Results Results 24hrs Laboratory Tests Test 08/19/18 09:02 08/19/18 18:07 08/19/18 20:24 08/19/18 21:31 Bedside Glucose 191 282 H 272 H 284 H Test 08/20/18 01:56 08/20/18 04:49 Bedside Glucose 196 White Blood Count 11.4 #H Red Blood Count 3.03 L Hemoglobin 10.0 L Hematocrit 31.4 L Mean Corpuscular 103.6 H Volume Mean Corpuscular 33.0 Hemoglobin Mean Corpuscular 31.8 L Hemoglobin Concent Red Cell 14.1 Distribution Width Platelet Count 194 Mean Platelet Volume 10.3 Immature 0.400 Granulocytes % Neutrophils % 82.4 H Lymphocytes % 11.3 L Monocytes % 5.7 Eosinophils % 0.0 Basophils % 0.2 Nucleated Red Blood 0.0 Cells % Immature 0.050 H Granulocytes # Neutrophils # 9.4 H Lymphocytes # 1.3 Monocytes # 0.7 Eosinophils # 0.0 Basophils # 0.0 Nucleated Red Blood 0.0 Cells # Sodium Level 137 Potassium Level 5.1 Chloride Level 102 Carbon Dioxide Level 27 Anion Gap 8 Blood Urea Nitrogen 13 Creatinine 0.51 Est Glomerular > 60 Filtrat Rate mL/min Glucose Level 205 Calcium Level 9.1 Total Bilirubin 0.1 L Direct Bilirubin 0.00 Indirect Bilirubin 0.1 Aspartate Amino 34 Transf (AST/SGOT) Alanine 26 Aminotransferase (AL T/SGPT) Alkaline Phosphatase 86 Total Protein 6.0 L Albumin 3.3 Globulin 2.70 Albumin/Globulin 1.22 Ratio Medications Medication Current Medications Amlodipine Besylate (Norvasc) 5 mg DAILY PO ; Start 08/20/18 at 09:00 Folic Acid (Folic Acid) 1 mg DAILY PO ; Start 08/20/18 at 09:00 Metformin HCl (Glucophage) 500 mg WITH BREAKFAST DINNE PO Last administered on 08/19/18at 18:09; Admin Dose 500 MG; Start 08/19/18 at 17:55 Miscellaneous Information 0.75 mg EVERY THURSDAY SQ ; Start 08/19/18 at 13:30; Status UNV Miscellaneous Information 14 unit QAM SQ ; Start 08/20/18 at 09:00; Status UNV Senna/Docusate Sodium (Senokot-S) 1 tab BID PO Last administered on 08/19/18at 20:33; Admin Dose 1 TAB; Start 08/19/18 at 21:00 Simethicone (Mylicon) 80 mg TID PRN PO .GAS; Start 08/19/18 at 13:30 Magnesium Hydroxide (Milk Of Mag) 30 ml BID PRN PO .CONSTIPATION; Start 08/19/18 at 13:30 Loperamide HCl (Imodium Cap) 2 mg Q6H PRN PO .DIARRHEA; Start 08/19/18 at 13:30 Dexamethasone (Decadron) 2 mg Q6 PO Last administered on 08/20/18at 05:28; Admin Dose 2 MG; Start 08/19/18 at 18:00; Stop 08/20/18 at 12:01 Gabapentin (Neurontin) 300 mg HS PO Last administered on 08/19/18 20:33; Admin Dose 300 MG; Start 08/19/18 at 21:00 Acetaminophen (Tylenol Tab) 500 mg Q6 PO Last administered on 08/20/18at 05:28; Admin Dose 500 MG; Start 08/19/18 at 18:00 Oxycodone HCl (Roxicodone) 15 mg Q4H PRN PO .PAIN Last administered on 08/19/18at 21:38; Admin Dose 15 MG; Start 08/19/18 at 13:30 Oxycodone HCl (Roxicodone) 10 mg Q4H PRN PO .PAIN; Start 08/19/18 at 13:30 Oxycodone HCl (Roxicodone) 5 mg Q4H PRN PO .PAIN; Start 08/19/18 at 13:30 Hydromorphone HCl (Dilaudid) 1 mg Q4H PRN IV .BREAKTHROUGH PAIN; Start 08/19/18 at 13:30 Ketorolac Tromethamine (Toradol) 15 mg Q6H PRN IV .PAIN Last administered on 08/20/18at 03:40; Admin Dose 15 MG; Start 08/19/18 at 13:30 Diphenhydramine HCl (Benadryl) 25 mg Q6H PRN IV .PRURITUS; Start 08/19/18 at 13:30 Zolpidem Tartrate (Ambien) 10 mg HS PRN PO .INSOMNIA; Start 08/19/18 at 13:30 IV Flush (NS 3 ml) 3 ml per protocol IV ; Start 08/19/18 at 13:30 Ondansetron HCl (Zofran Inj) 4 mg Q6H PRN IV .NAUSEA/VOMITING Last administered on 08/19/18at 23:53; Admin Dose 4 MG; Start 08/19/18 at 13:30 Naloxone HCl (Narcan) 0.2 mg Q2M PRN IV .RESP RATE; Start 08/19/18 at 13:30 Diagnostic Test (Pha) (Accu-Chek) 1 ea 02 XX ; Start 08/20/18 at 02:00 Insulin Aspart (Novolog Insulin Pen) NOVOLOG *MILD* ALGORITHM WITH MEALS BEDTIME SC Last administered on 08/19/18at 21:34; Admin Dose 3 UNIT; Start 08/19/18 at 21:00 Miscellaneous Information 1 ea NOTE XX ; Start 08/19/18 at 19:00 Glucose (Glutose) 15 gm Q15M PRN PO DECREASED GLUCOSE; Start 08/19/18 at 19:00 Glucose (Glutose) 22.5 gm Q15M PRN PO DECREASED GLUCOSE; Start 08/19/18 at 19:00 Dextrose (D50w Syringe) 25 ml Q15M PRN IV DECREASED GLUCOSE; Start 08/19/18 at 19:00 Dextrose (D50w Syringe) 50 ml Q15M PRN IV DECREASED GLUCOSE; Start 08/19/18 at 19:00 Glucagon (Glucagen) 1 mg Q15M PRN IM DECREASED GLUCOSE; Start 08/19/18 at 19:00 Glucose (Glutose) 15 gm Q15M PRN BUCCAL DECREASED GLUCOSE; Start 08/19/18 at 19:00 SHILO ROMERO MD Aug 20, 2018 08:34
[2018-08-20] MEDS: SENNA/DOCUSATE NA (8.6MG/50MG) TAB PO SCH (08:39)
[2018-08-20] MEDS: metFORMIN 500 MG TAB PO SCH (08:41)
[2018-08-20] MEDS: INSULIN ASPART [NOVOLOG] 3 ML PEN SC SCH (08:45)
[2018-08-20] MEDS ORDERED: FOLIC ACID 1 MG TAB PO SCH (09:00)
[2018-08-20] MEDS ORDERED: INSULIN DEGLUDEC 14 UNIT SQ SCH (09:00)
[2018-08-20] MEDS ORDERED: AMLODIPINE 5 MG TAB PO SCH (09:00)
[2018-08-20] MEDS ORDERED: [UNRECOGNIZED DRUG - OTHER] XX SCH (09:30)
[2018-08-20] MEDS ORDERED: [UNRECOGNIZED DRUG - REMARK] XX SCH (09:30)
== END 2018-08-20 12:38 | disposition home or self-care (01) | DRG 483 ==
LOC: SDS 07:35 → REC 07:36 → SDS 07:36 → MS1 15:26
PROVIDERS: ADMIT Orthopaedic Surgery; ATTEND Orthopaedic Surgery
PROC: 0RRJ00Z Replacement of Right Shoulder Joint with Reverse Ball and Socket Synthetic Substitute, Open Approach (ICD-10-PCS; principal; 2018-08-19 11:30)
DX: M19.011 Primary osteoarthritis, right shoulder (principal); M75.101 Unspecified rotator cuff tear or rupture of right shoulder, not specified as traumatic; E11.9 Type 2 diabetes mellitus without complications; I10 Essential (primary) hypertension; E78.5 Hyperlipidemia, unspecified; Z96.612 Presence of left artificial shoulder joint; Z96.653 Presence of artificial knee joint, bilateral; Z79.4 Long term (current) use of insulin
CPT/HCPCS: 71045; 80053; 81001; 82962; 85025; 85610; 85730; 86999; 88304; 88311; 97166; C1776; J0171; J0360; J0690; J0735; J1170; J1815; J1885; J2250; J2274; J2405; J2765; J2795; J3010; J3370; J7120

== ENCOUNTER → 2019-02-10 | Outpatient (CLI) | payer BC ==
[~2019-02-10] MED LIST changes: +AMLO5TAB4 PO; -ATOR10TA65 PO; +CYAN100T PO; +DULA0.75 SQ; -FERR324T11 PO; -GLIM4TAB PO; +INSU200I4 SQ; -LACTATED RINGER'S 1,000 ML IV* SCH; -SEVOFLURANE 15 MIN ONE
== END | disposition home or self-care (01) ==
LOC: VAS 15:53
PROVIDERS: ATTEND Internal Medicine
DX: R60.0 Localized edema (principal)
CPT/HCPCS: 93971

== ENCOUNTER → 2019-02-14 | Outpatient (CLI) | payer BC | END | disposition home or self-care (01) | LOC: LAB 15:58 | PROVIDERS: ATTEND Internal Medicine | DX: E83.59 Other disorders of calcium metabolism (principal) | CPT/HCPCS: 82330; 83036 ==

== ENCOUNTER → 2019-03-24 | Outpatient (CLI) | payer BC ==
[~2019-03-24] MED LIST changes: -CYAN100T PO; +CYAN100T35 PO
== END | disposition home or self-care (01) ==
LOC: LAB 15:41
PROVIDERS: ATTEND Specialist
DX: M06.9 Rheumatoid arthritis, unspecified (principal)
CPT/HCPCS: 80053; 82306; 83970; 85025